=== PATIENT | male | born 2005 | race Hispanic/Latino ===

== ENCOUNTER 2024-02-08 13:05 | Emergency (ER) | payer OTHER ==
[~2024-02-08] VITALS: Ht 177.8 cm; Wt 107.9 kg
[2024-02-08] MEDS: IBUPROFEN 600MG TAB PO ONE (14:57)
[2024-02-08] MEDS: ACETAMINOPHEN 500 MG TAB PO ONE (14:57)
[2024-02-08] MEDS: METAXALONE 800 MG TABLET PO ONE (14:57)
[2024-02-08] MEDS: LIDOCAINE 5% (LIDODERM) PATCH TD ONE (14:58)
[2024-02-08] MEDS ORDERED: IBUP-1022 PO (15:36)
[2024-02-08] MEDS ORDERED: LIDO5DIS41 TD (15:36)
[2024-02-08] MEDS ORDERED: ACET-683 PO (15:36)
[2024-02-08] MEDS ORDERED: META-10 PO (15:37)
[2024-02-08 16:01] VITALS: BP 101/54; TEMP 97.6; O2SAT 99
== END 2024-02-08 16:00 | disposition home or self-care (01) ==
LOC: M ED 13:05
DX: M54.30 Sciatica, unspecified side (principal)

== ENCOUNTER 2024-02-14 18:58 | Emergency (ER) | payer OTHER ==
[~2024-02-14] VITALS: Ht 175.3 cm; Wt 107.9 kg
[~2024-02-14 18:58] MED LIST: ACET-683 PO; IBUP-1022 PO; LIDO5DIS41 TD; META-10 PO
[2024-02-14] MEDS: methocarbamoL 500 MG TAB PO ONE (23:32)
[2024-02-14] MEDS: KETOROLAC 60MG 2ML VIAL IM ONE (23:33)
[2024-02-15] MEDS ORDERED: METH-1164 PO (00:07)
[2024-02-15 00:16] VITALS: BP 133/73; TEMP 97.9; O2SAT 100
== END 2024-02-15 00:18 | disposition home or self-care (01) ==
LOC: M ED 18:58
DX: M54.42 Lumbago with sciatica, left side (principal)
CPT/HCPCS: 96372; 99283; J1885

== ENCOUNTER 2024-05-18 09:40 | Emergency (ER) | payer OTHER ==
[~2024-05-18] VITALS: Ht 165.1 cm; Wt 110.2 kg
[~2024-05-18 09:40] MED LIST changes: +METH-1164 PO
[2024-05-18 11:29] VITALS: TEMP 98
[2024-05-18] MEDS: KETOROLAC 60MG 2ML VIAL IM ONE (12:36)
[2024-05-18] MEDS: ACETAMINOPHEN 500 MG TAB PO ONE (12:37)
[2024-05-18 13:54] VITALS: BP 136/79; O2SAT 98
== END 2024-05-18 14:06 | disposition home or self-care (01) ==
LOC: M ED 09:40
DX: M54.31 Sciatica, right side (principal); Z79.899 Other long term (current) drug therapy
CPT/HCPCS: 96372; 99283; J1885

== ENCOUNTER → 2024-10-08 | Outpatient (CLI) | payer OTHER ==
[~2024-10-08] MED LIST changes: +LIDO1ADH93 TD; -LIDO5DIS41 TD
[2024-10-08 08:38] LABS: PLATELET COUNT, AUTOMATED 207 10^3/uL (150-450)
[2024-10-08 09:05] LABS: INR 0.92
[2024-10-08 09:18] LABS: COLLAGEN EPINEPHRINE 121 SECONDS (74-162)
== END ==
LOC: M LAB 07:39
PROVIDERS: ATTEND Physician Assistant Surgical
DX: Z01.812 Encounter for preprocedural laboratory examination (principal)